=== PATIENT | male | born 1990 | race Hispanic/Latino ===

== ENCOUNTER → 2020-06-06 07:49 | Outpatient (CLI) | payer OTHER, SELFPAY ==
[2020-06-06 18:08] LABS: SARS-CoV-2 RNA PCR Negative
== END ==
PROVIDERS: Visit Provider Internal Medicine
DX: Z20.822 Contact with and (suspected) exposure to COVID-19 (principal); R09.89 Other specified symptoms and signs involving the circulatory and respiratory systems
CPT/HCPCS: C9803; U0003; U0005

== ENCOUNTER 2021-09-28 17:37 | Emergency (ER) | payer OTHER, SELFPAY ==
[2021-09-28 17:43] VITALS: BP 139/84; PULSE 89; RESP 16; TEMP 37.1; O2SAT 100
--- NOTE | 2021-09-28 18:03 | ED.URI ---
HPI - URI/Sore Throat General Chief Complaint: Upper Respiratory Infection Stated Complaint: Cough,Fever Time Seen by Provider: 09/28/21 18:03 Source: patient Mode of arrival: ambulatory Limitations: no limitations History of Present Illness HPI Narrative: 30-year-old male presents with complaint of bilateral ear pressure, headaches, fatigue, chills for 3 days. Reports at work he began feeling worse today with cough and body aches. Had fever 2 days ago, 102 Fahrenheit. Is alternate between ibuprofen and Tylenol to treat symptoms. Denies nausea vomiting diarrhea. No shortness of breath. All systems reviewed and negative except as noted above. Related Data Home Medications Medication Instructions Recorded Confirmed No Home Medications 03/13/19 03/13/19 Allergies Allergy/AdvReac Type Severity Reaction Status Date / Time No Known Allergies Allergy Unknown Unverified 01/23/18 18:22 Review of Systems Review of Systems: CONSTITUTIONAL: Reports fever, chills, or sweats. EYES: Denies visual changes, redness, or discharge. ENT: Denies rhinorrhea, congestion, sore throat. Reports otalgia. CARDIOVASCULAR: Denies chest pain, palpitations, or edema. RESPIRATORY: Reports cough. Denies dyspnea. GASTROINTESTINAL: Denies abdominal pain, nausea, vomiting, or diarrhea. GENITOURINARY: Denies dysuria or hematuria. SKIN: Denies rash or itching. MUSCULOSKELETAL: Denies back pain, joint pain. Reports myalgia. NEUROLOGIC: Denies headache, numbness, or weakness. PSYCHIATRIC: Denies anxiety or depression. All other systems reviewed are negative, except as documented in HPI. PMFSH Comments At time of signature, agree with nursing past medical, surgical, social and family history. There is no relevant family history pertinent to the presenting complaint. Exam Narrative: GENERAL: This is a well-nourished, well-developed patient, in no apparent distress. HEAD: normocephalic, atraumatic. EYES: PERRL. Sclera clear/white. Vision is grossly intact. EARS: External ears normal, auditory canals clear and without drainage, TMs normal without perforation. Hearing grossly intact. NOSE: External nose normal with no obvious nasal discharge, nares without redness, no rhinorrhea. THROAT: Mucous membranes moist, posterior pharynx clear. NECK: Neck supple, non-tender without lymphadenopathy, masses or thyromegaly. CARDIOVASCULAR: Regular rate and rhythm without murmurs, gallops, or rubs. RESPIRATORY: Clear to auscultation. Breath sounds equal bilaterally. No wheezes, rales, or rhonchi. GASTROINTESTINAL: Abdomen soft, non-tender, nondistended. Bowel sounds are active. No hepato-splenomegaly, or palpable masses. No guarding. SKIN: warm, Dry, intact with no suspicious lesions or rash, good texture and turgor. NEURO: awake, alert, and oriented to person, place and time. There were no obvious focal neurologic abnormalities. EXTREMITIES: No joint tenderness, effusion, or edema noted. No calf tenderness. Negative Homans sign bilaterally. BACK: Nontender without deformity. No CVA tenderness. Course Course Level of Care: Express Care Visit Vital Signs Vital signs: Vital Signs Temperature 37.1 C 09/28/21 17:43 Pulse Rate 89 09/28/21 17:43 Respiratory Rate 16 09/28/21 17:43 Blood Pressure 139/84 09/28/21 17:43 Pulse Oximetry 100 09/28/21 17:43 Oxygen Delivery Room Air 09/28/21 17:43 Temperature 37.1 C 09/28/21 17:43 Pulse Rate 89 09/28/21 17:43 Respiratory Rate 16 09/28/21 17:43 Blood Pressure 139/84 09/28/21 17:43 Pulse Oximetry 100 09/28/21 17:43 Oxygen Delivery Room Air 09/28/21 17:43 Reviewed MDM - URI/Sore Throat MDM Narrative Medical decision making narrative: GENERAL: This is a well-nourished, well-developed patient. patient ill-appearing but no distress. HEAD: normocephalic, atraumatic. EYES: PERRL. Sclera clear/white. Vision is grossly intact. EARS: External ears normal, auditory canals clear and
== END 2021-09-28 18:24 | disposition home or self-care (01) ==
PROVIDERS: Emergency Provider Nurse Practitioner Family; PCP Registered Nurse
DX: J10.1 Influenza due to other identified influenza virus with other respiratory manifestations (principal); Z20.822 Contact with and (suspected) exposure to COVID-19
CPT/HCPCS: 87426; 87804; 99213; C9803; G0463

== ENCOUNTER 2022-02-17 17:41 | Emergency (ER) | payer OTHER, SELFPAY ==
[2022-02-17 17:48] VITALS: BP 130/70; PULSE 72; RESP 16; TEMP 36.6; O2SAT 99
--- NOTE | 2022-02-17 18:07 | ED.URI ---
HPI - URI/Sore Throat General Chief Complaint: Upper Respiratory Infection Stated Complaint: sore throat Time Seen by Provider: 02/17/22 18:12 Source: patient and RN notes reviewed Mode of arrival: ambulatory Limitations: no limitations History of Present Illness HPI Narrative: 31-year-old male presents to concern for 2 day history of sore throat, headache, body aches, chills, nasal congestion rhinorrhea. He reports he has been taking ibuprofen and allergy medicine without relief. MD elicited complaint: cough and sore throat Related Data Allergies Allergy/AdvReac Type Severity Reaction Status Date / Time No Known Allergies Allergy Unknown Verified 02/17/22 17:48 Review of Systems Review of Systems: CONSTITUTIONAL: Denies malaise, chills, sweats, or fever. EYES: Denies visual changes, redness, or discharge. ENT: Reports rhinorrhea, congestion, and sore throat. CARDIOVASCULAR: Denies chest pain, palpitations, or edema. RESPIRATORY: Reports cough. Denies dyspnea. GASTROINTESTINAL: Denies abdominal pain, nausea, vomiting, diarrhea SKIN: Denies rash or itching. MUSCULOSKELETAL: Reports myalgia. NEUROLOGIC: Reports headache. All systems reviewed & are unremarkable except as noted in HPI and below PMFSH Comments At time of signature, agree with nursing past medical, surgical, social and family history. There is no relevant family history pertinent to the presenting complaint Exam Narrative: GENERAL: Well-appearing, well-nourished, and in no acute distress. HEAD: Normocephalic EYES: PERRLA, conjunctivae clear ENT: Nares clear, turbinates edematous and erythematous, clear discharge. Mucous membranes moist. TM pearly cisneros with dull light reflex bilaterally; no tragal tenderness. Oropharynx not erythematous without lesions. Tonsils not enlarged and without exudate, no drooling, no hoarseness, no trismus, uvula midline. NECK: Supple. No lymphadenopathy CHEST: Clear to auscultation, breath sounds equal. No wheezing, rhonchi, rales, or stridor. No respiratory distress, speaks in full sentences. HEART: Regular rate and rhythm. No murmur heard. SKIN: Warm, dry, no rash. NEURO: Alert and oriented x3. PSYCH: Normal mood and affect Course Course Emergency Course: Patient is aware of diagnosis, understands and agrees to treatment plan. Anticipatory guidance given. Patient agrees to follow-up as directed and is aware of reasons to seek care at the emergency department. Portions of this record may have been created with voice recognition software Level of Care: Express Care Visit Vital Signs Vital signs: Vital Signs Temperature 97.8 F 02/17/22 17:48 Pulse Rate 72 02/17/22 17:48 Respiratory Rate 16 02/17/22 17:48 Blood Pressure 130/70 02/17/22 17:48 Pulse Oximetry 99 02/17/22 17:48 Oxygen Delivery Room Air 02/17/22 17:48 Temperature 97.8 F 02/17/22 17:48 Pulse Rate 72 02/17/22 17:48 Respiratory Rate 16 02/17/22 17:48 Blood Pressure 130/70 02/17/22 17:48 Pulse Oximetry 99 02/17/22 17:48 Oxygen Delivery Room Air 02/17/22 17:48 Reviewed. MDM - URI/Sore Throat MDM Narrative Medical decision making narrative: Differential diagnosis considered: Nichols virus, strep pharyngitis, allergic rhinitis, upper respiratory tract infection, sinusitis, rhinosinusitis, nasopharyngitis. viral pharyngitis, otitis media, otitis externa, pneumonia, bronchitis, viral cough syndrome, viral syndrome, and influenza. Exam findings show no acute concerns or changes; patient is non-toxic appearing and is in no distress. Patient is appropriate for outpatient treatment and follow-up. Lab Data Attestation: I reviewed the patient's lab results. Labs: Strep Screen Presumptive Negative *(Reference Range: Negative)* Critical Care Time Critical Care Time Critical Care Time: No Discharge Plan Discharge Clinical Impression: Upper respiratory infection Qu
== END 2022-02-17 18:27 | disposition home or self-care (01) ==
PROVIDERS: Emergency Provider Nurse Practitioner; PCP Registered Nurse
DX: J06.9 Acute upper respiratory infection, unspecified (principal)
CPT/HCPCS: 87081; 87804; 87880; 99213; G0463

== ENCOUNTER 2022-10-19 09:56 | Emergency (ER) | payer OTHER, SELFPAY ==
--- NOTE | 2022-10-19 10:00 | ED.GENADULT ---
HPI - General Adult General Chief complaint: Ear Stated complaint: Left Ear Irritation Time Seen by Provider: 10/19/22 10:00 Source: patient Mode of arrival: ambulatory Limitations: no limitations History of Present Illness HPI narrative: 31-year-old male patient presents to the [facility] with complaints of ongoing left ear pain. Patient states he saw his primary doctor on October 16 was prescribed Augmentin and a Medrol Dosepak for his symptoms. Patient states the pain is getting worse. Patient states he did take some Tylenol and ibuprofen today for pain. Denies fevers, body aches or chills Related Data Home Medications Medication Instructions Recorded Confirmed amoxicillin 875 mg-potassium tablet 10/19/22 clavulanate 125 mg tablet methylprednisolone 4 mg tablets in mg 10/19/22 a dose pack Allergies Allergy/AdvReac Type Severity Reaction Status Date / Time No Known Allergies Allergy Unknown Verified 10/19/22 10:05 Review of Systems Review of Systems: CONSTITUTIONAL: Denies fever, chills, or sweats. EYES: Denies visual changes, redness, or discharge. ENT: Denies rhinorrhea, congestion, sore throat, positive left otalgia. CARDIOVASCULAR: Denies chest pain, palpitations, or edema. RESPIRATORY: Denies cough or dyspnea. GASTROINTESTINAL: Denies abdominal pain, nausea, vomiting, or diarrhea. GENITOURINARY: Denies dysuria or hematuria. SKIN: Denies rash or itching. MUSCULOSKELETAL: Denies back pain, joint pain, or myalgia. NEUROLOGIC: Denies headache, numbness, or weakness. PSYCHIATRIC: Denies anxiety or depression. [facility] Past Medical History Medical History No significant past medical history Comments At the time of my signature I agree with nursing past medical history, surgical, social, and family history. There is no relevant family history pertinent to the presenting complaint. Exam Narrative: GENERAL: Well-appearing, well-nourished, and in no acute distress. HEAD: Normocephalic, atraumatic. EYES: PERRLA and EOMI. ENT: Nares clear, no rhinorrhea or epistaxis. Mucous membranes moist. Patient does have some swelling, erythema and slight discharge noted to the left canal unable to visualize the tympanic membrane very well. NECK: Supple. No lymphadenopathy CHEST: Clear to auscultation. No respiratory distress. HEART: Regular rate and rhythm. No murmur heard. Normal peripheral pulses. ABDOMEN: Soft, nontender, nondistended, normal active bowel sounds. EXTREMITIES: Normal range of motion. No edema. SKIN: Warm, dry, no rash. NEURO: No focal deficits. Alert and oriented x3. Course Course Level of Care: Express Care Visit Vital Signs Vital signs: Vital Signs Temperature 36.6 C 10/19/22 10:06 Pulse Rate 70 10/19/22 10:06 Respiratory Rate 16 10/19/22 10:06 Blood Pressure 134/85 10/19/22 10:06 Pulse Oximetry 100 10/19/22 10:06 Oxygen Delivery Room Air 10/19/22 10:06 Temperature 36.6 C 10/19/22 10:06 Pulse Rate 70 10/19/22 10:06 Respiratory Rate 16 10/19/22 10:06 Blood Pressure 134/85 10/19/22 10:06 Pulse Oximetry 100 10/19/22 10:06 Oxygen Delivery Room Air 10/19/22 10:06 Vital signs reviewed. Medical Decision Making MDM Narrative Medical decision making narrative: Discussed with patient that I will go ahead and prescribe him an antibiotic ear drop with a steroid in it to help with the symptoms of the infection in the canal however because I cannot visualize the tympanic membrane very well and the fact that he did note that his doctor saw some fluid behind the eardrum I would recommend that he continue to finish the Augmentin antibiotic and a Medrol Dosepak that was prescribed by his primary doctor. If symptoms continue to worsen I would highly recommend that he follow-up with his primary doctor. Differential Diagnosis Differential Diagnosis: Differential diagnosis: Otitis media, otiti
[2022-10-19 10:06] VITALS: BP 134/85; PULSE 70; RESP 16; TEMP 36.6; O2SAT 100
== END 2022-10-19 10:19 | disposition home or self-care (01) ==
PROVIDERS: Emergency Provider Nurse Practitioner Family; PCP Registered Nurse
DX: H60.502 Unspecified acute noninfective otitis externa, left ear (principal)
CPT/HCPCS: 99213; G0463

== ENCOUNTER 2023-10-30 16:09 | Emergency (ER) | payer OTHER, SELFPAY ==
[2023-10-30 16:34] VITALS: BP 124/76; PULSE 70; RESP 16; TEMP 36.7; O2SAT 98
--- NOTE | 2023-10-30 17:11 | ED.URI ---
HPI - URI/Sore Throat General Chief Complaint: Upper Respiratory Infection Stated Complaint: Ears Irritation Time Seen by Provider: 10/30/23 17:11 Source: patient Mode of arrival: ambulatory Limitations: no limitations History of Present Illness HPI Narrative: 33-year-old male presented for complaint of bilateral ear pain, onset today. Endorses nasal congestion for about 3 days. At the onset he had body aches and subjective fever which have resolved. He denies sore throat, headache, nausea, vomiting, diarrhea or lethargy. Related Data Home Medications Medication Instructions Recorded Confirmed No Home Medications 10/30/23 10/30/23 Allergies Allergy/AdvReac Type Severity Reaction Status Date / Time No Known Allergies Allergy Unknown Verified 10/30/23 16:45 Review of Systems Review of Systems: CONSTITUTIONAL: Denies malaise, chills, or fever. EYES: Denies visual changes, redness, or discharge. ENT: Denies sinus pain, and sore throat. Reports ear pain, rhinorrhea, congestion, CARDIOVASCULAR: Denies chest pain, palpitations, or edema. RESPIRATORY: Denies cough or dyspnea. GASTROINTESTINAL: Denies abdominal pain, nausea, vomiting, diarrhea SKIN: Denies rash or itching. MUSCULOSKELETAL: Denies myalgia. NEUROLOGIC: Denies headache. All systems reviewed & are unremarkable except as noted in HPI and below PMFSH Past Medical History Medical History No significant past medical history Comments At time of signature, agree with nursing past medical, surgical, social and family history. There is no relevant family history pertinent to the presenting complaint Exam Narrative: GENERAL: Well-appearing EYES: conjunctivae clear ENT: Nares clear. Mucous membranes moist. TMs pearly cisneros with dull light reflex And clear effusion bilaterally; no tragal tenderness. Oropharynx not erythematous without lesions. Tonsils not enlarged and without exudate, no drooling, no hoarseness, no trismus, uvula midline. NECK: Supple. No lymphadenopathy CHEST: Clear to auscultation, breath sounds equal. No wheezing, rhonchi, rales, or stridor. No respiratory distress, speaks in full sentences. HEART: Regular rate and rhythm. No murmur heard. SKIN: Warm, dry, no rash. NEURO: Alert and oriented x3. PSYCH: Normal mood and affect Course Course Emergency Course: Patient is aware of diagnosis, understands and agrees to treatment plan. Anticipatory guidance given. Patient agrees to follow-up as directed and is aware of reasons to seek care at the emergency department. Portions of this record may have been created with voice recognition software Level of Care: Express Care Visit Vital Signs Vital signs: Vital Signs Temperature 98.1 F 10/30/23 16:34 Pulse Rate 70 10/30/23 16:34 Respiratory Rate 16 10/30/23 16:34 Blood Pressure 124/76 10/30/23 16:34 Pulse Oximetry 98 10/30/23 16:34 Oxygen Delivery Room Air 10/30/23 16:34 Temperature 98.1 F 10/30/23 16:34 Pulse Rate 70 10/30/23 16:34 Respiratory Rate 16 10/30/23 16:34 Blood Pressure 124/76 10/30/23 16:34 Pulse Oximetry 98 10/30/23 16:34 Oxygen Delivery Room Air 10/30/23 16:34 Reviewed MDM - URI/Sore Throat MDM Narrative Medical decision making narrative: Discussed physical exam findings and strep result. Advised supportive measures and signs/symptoms to go to the ER. Pt is appropriate for outpt treatment and f/u. Differential Diagnosis Differential diagnosis: Likely upper respiratory infection, otitis media, sinusitis, viral infection and pharyngitis Discharge Plan Discharge Clinical Impression: Viral infection Patient Disposition: Home, Self-Care Condition: Stable Instructions: Antibiotic Form, Earache (ED) Additional Instructions: Rapid strep swab was negative today You will be notified in a few days if the culture comes back positive for strep, and ap
[2023-10-30 17:32] LABS: EDSTREPNEGPOS1 Presumptive Negative
== END 2023-10-30 17:46 | disposition home or self-care (01) ==
PROVIDERS: Emergency Provider Nurse Practitioner Family; PCP Registered Nurse
DX: B34.9 Viral infection, unspecified (principal)
CPT/HCPCS: 87081; 87880; 99213; G0463